=== PATIENT | male | born 2000 | race Caucasian/White ===

== ENCOUNTER 2023-06-06 07:58 | Emergency (ER) | payer OTHER ==
[~2023-06-06] VITALS: Ht 182.9 cm; Wt 100.0 kg
[2023-06-06 09:30] VITALS: BP 118/65; TEMP 97.1; O2SAT 98
[2023-06-06] MEDS ORDERED: BENZ200C70 PO (09:53)
[2023-06-06] MEDS ORDERED: VENTAER INH (09:53)
== END 2023-06-06 10:01 | disposition home or self-care (01) ==
LOC: M ED 07:58
DX: J06.9 Acute upper respiratory infection, unspecified (principal); Z79.51 Long term (current) use of inhaled steroids; Z79.899 Other long term (current) drug therapy

== ENCOUNTER 2023-11-14 09:01 | Emergency (ER) | payer OTHER ==
[~2023-11-14] VITALS: Ht 182.9 cm; Wt 96.0 kg
[~2023-11-14 09:01] MED LIST: BENZ200C70 PO; VENTAER INH
[2023-11-14] MEDS ORDERED: AMPH1CAP5 (09:10)
[2023-11-14] MEDS: ONDANSETRON 4MG ORAL DISINTEGRATING TAB PO ONE (10:20)
[2023-11-14] MEDS ORDERED: ONDA-282 PO (11:18)
[2023-11-14 11:26] VITALS: BP 123/72; TEMP 97.2; O2SAT 100
== END 2023-11-14 12:17 | disposition home or self-care (01) ==
LOC: M ED 09:01
DX: S06.0X0A Concussion without loss of consciousness, initial encounter (principal); Y92.410 Unspecified street and highway as the place of occurrence of the external cause; Y93.9 Activity, unspecified; Y99.9 Unspecified external cause status; V48.5XXA Car driver injured in noncollision transport accident in traffic accident, initial encounter; F90.9 Attention-deficit hyperactivity disorder, unspecified type; Z79.899 Other long term (current) drug therapy